=== PATIENT | male | born 1995 | race Caucasian/White ===

== ENCOUNTER 2024-04-30 23:26 | Emergency (ER) | payer SELFPAY ==
[~2024-04-30] VITALS: Ht 177.8 cm; Wt 95.0 kg
[2024-05-01] MEDS: KETAMINE HCL 50 MG/ML 10ML IV ONE (04:08)
[2024-05-01 04:10] VITALS: O2SAT 99
[2024-05-01 05:50] VITALS: BP 135/83; PULSE 98; RESP 16; TEMP 98
== END 2024-05-01 05:54 | disposition home or self-care (01) ==
LOC: ER 23:37
DX: S82.452A Displaced comminuted fracture of shaft of left fibula, initial encounter for closed fracture (principal); F12.90 Cannabis use, unspecified, uncomplicated; W01.0XXA Fall on same level from slipping, tripping and stumbling without subsequent striking against object, initial encounter; Y93.89 Activity, other specified; Y92.89 Other specified places as the place of occurrence of the external cause; Y99.8 Other external cause status
CPT/HCPCS: 73590; 73610 ×2; 73630; 27788; 99152; 99285; J3490; Z7610